=== PATIENT | male | born 1995 | race Caucasian/White ===

== ENCOUNTER 2024-08-09 10:51 | Emergency (ER) | payer SELFPAY | END 2024-08-09 12:54 | disposition home or self-care (01) | LOC: JP.ED 10:51 | DX: S00.06XA Insect bite (nonvenomous) of scalp, initial encounter (principal); W57.XXXA Bitten or stung by nonvenomous insect and other nonvenomous arthropods, initial encounter | CPT/HCPCS: 99282; 99283 ==